=== PATIENT | female | born 1975 | race Caucasian/White ===

== ENCOUNTER 2017-03-29 23:30 | Emergency (ER) | payer BC ==
[2017-03-29 23:56] VITALS: BP 157/90
--- NOTE | 2017-03-30 00:10 | EDM.PDOC ---
ED HPI GENERAL MEDICAL PROBLEM - General Chief Complaint: General Stated Complaint: cp Time Seen by Provider: 03/30/17 00:00 Source of Information: Reports: Patient History Limitations: Reports: No Limitations - History of Present Illness INITIAL COMMENTS - FREE TEXT/NARRATIVE: States has been sick since last week. Mainly cough, chills and now tonight she developed pain across the center of chest that goes across the chest and into the back. This pain started tonight. Not there constant. Can't reproduce the pain with palpation. Cough is very harsh and nonproductive. Was in to see Mark yesterday and was given rocephin, solumedrol and then started on prednisone orally today, zithromax and phenergan with codeine. She has taken all of this today. Duration: Recurring Location: Reports: Chest Quality: Reports: Sharp Associated Symptoms: Reports: Chest Pain, Cough Treatments RN INTEGRITY: Reports: Other (see below) (see HPI) Mid-Sternal Chest Pain Score (Numeric/FACES): 4 - Related Data Allergies Allergy/AdvReac Type Severity Reaction Status Date / Time No Known Allergies Allergy Verified 03/29/17 23:31 Home Meds: Home Meds Azithromycin [IMW: Azithromycin] 250 mg PO DAILY 03/29/17 [History] predniSONE [predniSONE] 20 mg PO DAILY 03/29/17 [History] Past Medical History - Past Surgical History HEENT Surgical History: Reports: LASIK GI Surgical History: Reports: Cholecystectomy Musculoskeletal Surgical History: Reports: Other (See Below) Social & Family History - Family History Family Medical History: Noncontributory - Tobacco Use Smoking Status *Q: Former Smoker Used Tobacco, but Quit: Yes Month Tobacco Last Used: 3 YRS AGO ED ROS GENERAL - Review of Systems Review Of Systems: See Below Constitutional: Reports: Fever, Chills, Weakness Respiratory: Reports: Shortness of Breath, Cough, Sputum Cardiovascular: Reports: Chest Pain. Denies: Edema GI/Abdominal: Reports: No Symptoms Musculoskeletal: Reports: No Symptoms Skin: Reports: No Symptoms Neurological: Reports: No Symptoms ED EXAM, GENERAL - Physical Exam Exam: See Below Exam Limited By: No Limitations General Appearance: Alert, WD/WN, Moderate Distress Ears: Normal External Exam, Normal Canal, Normal TMs Nose: Normal Inspection Throat/Mouth: Normal Inspection, Normal Oropharynx, Normal Voice, No Airway Compromise Head: Atraumatic, Normocephalic Neck: Normal Inspection, Supple, Non-Tender, Full Range of Motion Respiratory/Chest: Rhonchi (occasional rhonchi throughout that will clear with severe cough.), Wheezing (expiratory wheeze noted at times.) Cardiovascular: Regular Rate, Rhythm, No Edema GI/Abdominal: Normal Bowel Sounds, Soft, Non-Tender Back Exam: Normal Inspection Extremities: Normal Inspection, No Pedal Edema Neurological: Alert, Oriented Psychiatric: Normal Affect Skin Exam: Warm, Dry Course - Vital Signs Last Recorded V/S: Last Vital Signs Temp 99.9 F 03/29/17 23:44 Pulse 80 03/29/17 23:56 Resp 18 03/29/17 23:44 BP 157/90 H 03/29/17 23:56 Pulse Ox 97 03/29/17 23:44 - Orders/Labs/Meds Orders: Active Orders 24 hr Category Date Time Status Chest 2V [CR] Stat Exams 03/29/17 23:33 Taken COMPREHENSIVE METABOLIC PN,CMP [CHEM] Stat Lab 03/29/17 23:33 Ordered CREATINE KINASE,CK [CHEM] Stat Lab 03/29/17 23:33 Ordered INR,PT,PROTHROMBIN TIME [COAG] Stat Lab 03/29/17 23:33 Ordered LACTATE DEHYDROGENASE,LDH [CHEM] Stat Lab 03/29/17 23:33 Ordered PTT,PARTIAL THROMBOPLSTIN TIME [COAG] Stat Lab 03/29/17 23:33 Ordered TROPONIN I [CHEM] Stat Lab 03/29/17 23:33 Ordered Labs: Laboratory Tests 03/29/17 Range/Units 23:33 WBC 11.4 H (5.0-10.0) 10^3/uL RBC 4.31 (4.00-5.50) 10^6/uL Hgb 13.0 (12.0-16.0) g/dL Hct 38.0 (37.0-47.0) % MCV 88.2 (82.0-94.0) fL MCH 30.2 (27.0-32.0) pg MCHC 34.2 (33.0-38.0) g/dL RDW Coeff of Nasim 12.5 (11.0-15.0) % Plt Count 226 (150-400) 10^3/uL Neut % (Auto) 73.1 (35-85) % Lymph % (Auto) 19.0 (10-55) % [place] % (Auto) 7.4 (0-16) % Eos % (Auto) 0.4 (0-5) % Baso % (Auto) 0.1 (0-3) % Neut # (Auto) 8.35 H (1.80-7.00) 10^3/uL Lymph # (Auto) 2.17 (1.00-4.80) 10^3/uL [place] # (Auto) 0.84 H (0.00-0.80) 10^3/uL Eos # (Auto) 0.04 (0.00-0.45) 10^3/uL Baso # (Auto) 0.01 10^3/uL - Re-Assessments/Exams Free Text/Narrative Re-Assessment/Exam: 03/30/17 00:20 In to discuss the results of labs, EKG and CXR. Labs are all negative for any cardiac involvement. Encouraged her to use her cough suppressant more frequently. Departure - Departure Time of Disposition: 00:21 Disposition: Home, Self-Care 01 Condition: Good Clinical Impression: Bronchitis, Chest wall pain - Discharge Information Instructions: Acute Bronchitis, Adult Referrals: Chano Wynne MD [Primary Care Provider] - Forms: ED Department Discharge Additional Instructions: continue on current meds use advil as needed for chest wall pain continue the cough syrup as needed cool mister if you have one Recheck if not improving. - Problem List & Annotations (1) Bronchitis SNOMED Code(s): 11152189 Code(s): J40 - BRONCHITIS, NOT SPECIFIED ACUTE OR CHRONIC Status: Acute Priority: High Current Visit: Yes (2) Chest wall pain SNOMED Code(s): 067102662 Code(s): R07.89 - OTHER CHEST PAIN Status: Acute Priority: High Current Visit: Yes - Problem List Review Problem List Initiated/Reviewed/Updated: Yes - My Orders Last 24 Hours: My Active Orders 03/29/17 23:33 Chest 2V [CR] Stat COMPREHENSIVE METABOLIC PN,CMP [CHEM] Stat CREATINE KINASE,CK [CHEM] Stat INR,PT,PROTHROMBIN TIME [COAG] Stat LACTATE DEHYDROGENASE,LDH [CHEM] Stat PTT,PARTIAL THROMBOPLSTIN TIME [COAG] Stat TROPONIN I [CHEM] Stat - Assessment/Plan Last 24 Hours: My Active Orders 03/29/17 23:33 Chest 2V [CR] Stat COMPREHENSIVE METABOLIC PN,CMP [CHEM] Stat CREATINE KINASE,CK [CHEM] Stat INR,PT,PROTHROMBIN TIME [COAG] Stat LACTATE DEHYDROGENASE,LDH [CHEM] Stat PTT,PARTIAL THROMBOPLSTIN TIME [COAG] Stat TROPONIN I [CHEM] Stat
[2017-03-30 00:13] LABS: CHLORIDE,CL 105 mEq/L (98-106); SODIUM,NA 141 mEq/L (136-145)
== END 2017-03-30 00:30 | disposition home or self-care (01) ==
LOC: CC.ED 23:30
DX: J40 Bronchitis, not specified as acute or chronic (principal); R07.89 Other chest pain; Z79.899 Other long term (current) drug therapy; Z87.891 Personal history of nicotine dependence
CPT/HCPCS: 36415; 71046; 80053; 82550; 83615; 84484; 85025; 85610; 85730; 93005; 99285